=== PATIENT | male | born 1950 | race Caucasian/White ===

== ENCOUNTER → 2024-08-06 | Outpatient (CLI) | payer OTHER ==
[2024-08-06 13:34] LABS: ALBUMIN 3.7 g/dL (3.5-5.0); BILIRUBIN,TOTAL 0.6 mg/dL (0.2-1.0); CREATININE 1.1 mg/dL (0.5-1.3); TOTAL PROTEIN, SERUM 7.8 g/dL (6.0-8.3)
== END | disposition home or self-care (01) ==
LOC: LAB 10:59
PROVIDERS: ATTEND Student in an Organized Health Care Education/Training Program
DX: E78.5 Hyperlipidemia, unspecified (principal); R07.9 Chest pain, unspecified; R06.09 Other forms of dyspnea
CPT/HCPCS: 36415; 80053; 80061

== ENCOUNTER 2024-10-26 05:46 | Day surgery (SDC) | payer OTHER ==
[2024-10-24 09:30] LABS: BASOPHILS # (AUTO) 0.05 K/uL (0.00-0.20); BASOPHILS % (AUTO) 0.6 % (0.0-5.0); EOSINOPHILS % (AUTO) 3.8 % (0.0-8.0); HEMATOCRIT 43.2 % (42-54); IMMATURE GRANULOCYTE ABSOLUTE 0.03 K/uL (0-1); LYMPHOCYTES # (AUTO) 1.9 K/uL (1.0-4.8); LYMPHOCYTES % (AUTO) 23.6 % (21.0-51.0); MEAN CORPUSCULAR HEMOGLOBIN 30.7 pg (27.0-33.0); MEAN CORPUSCULAR HGB CONC 32.9 g/dL (32.0-36.0); MEAN CORPUSCULAR VOLUME 93.5 fL (79-99); MONOCYTES # (AUTO) 0.6 K/uL (0.1-1.0); MONOCYTES % (AUTO) 7.4 % (3.0-13.0); NEUTROPHILS % (AUTO) 64.2 % (40.0-77.0); PLATELET COUNT (AUTO) 192 K/uL (130-400); RED BLOOD CELL COUNT(AUTO) 4.62 MIL/uL (4.50-6.20); RED CELL DISTRIBUTION WIDTH 13.2 % (11.0-15.5); WHITE BLOOD COUNT (AUTO) 7.8 K/uL (4.8-10.8)
[2024-10-24 09:33] LABS: APPEARANCE,URINE CLEAR (CLEAR); BILIRUBIN,URINE NEGATIVE (NEGATIVE); COLOR,URINE LIGHT-YELLOW (YELLOW); GLUCOSE, URINE (UA) NEGATIVE (NEGATIVE); KETONES,URINE NEGATIVE (NEGATIVE); LEUKOCYTE ESTERASE ,URINE NEGATIVE Leu/uL (NEGATIVE); NITRATE,URINE NEGATIVE (NEGATIVE); OCCULT BLOOD,URINE NEGATIVE (NEGATIVE); PROTEIN,URINE NEGATIVE (NEGATIVE); UROBILINOGEN,URINE 0.2 mg/dL (0.2-1.0)
[2024-10-24 09:36] VITALS: BP 128/82; PULSE 51; RESP 18; TEMP 97.9
[2024-10-24 09:37] LABS: ADD UA MICROSCOPIC NO
[2024-10-24 09:38] LABS: CREATININE 1.1 mg/dL (0.5-1.3); POTASSIUM 4.4 mmol/L (3.5-5.1)
[2024-10-24 09:41] LABS: INR 1.01 (0.85-1.15); PROTHROMBIN TIME 10.7 SEC (9.6-11.6)
[2024-10-24 09:42] LABS: PARTIAL THROMBOPLASTIN TIME 28.3 SEC (26.3-35.5)
[2024-10-24 10:26] LABS: B-TYPE NATRIURETIC PEPTIDE 67 pg/mL (0-100)
--- NOTE | 2024-10-24 10:28 | EKG ---
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
--- NOTE | 2024-10-24 11:44 | HMCIMG ---
CHEST 1VW HISTORY: Preop COMPARISON: None FINDINGS: A frontal projection of the chest was obtained. No acute pulmonary infiltrates is seen. The heart is borderline enlarged. Degenerative changes are seen. Aortic calcifications are seen. IMPRESSION: 1. No acute pulmonary infiltrate is seen.
[2024-10-26] VITALS (10 sets, daily range): BP systolic 137–164; BP diastolic 84–95; PULSE 66–74; RESP 13–18; TEMP 97.3–97.8
[~2024-10-26] VITALS: Ht 185.4 cm; Wt 110.9 kg
[~2024-10-26 05:46] MED LIST: ASPI-1443 PO; CARV12.511 PO; ISOS30TA92 PO; METF-446 PO; ROSU40TA88 PO; SEMA1PEN3 SQ; TAMS-55 PO
[2024-10-26] MEDS: 0.9%NACL 1000ML 1,000 ML IV SCH (06:37)
[2024-10-26] MEDS ORDERED: HEParin 10,000 UNIT/10ML (1,000 UNIT/ML) VIAL ONE ×2 (07:10→07:59)
[2024-10-26] MEDS ORDERED: VERAPAMIL HCL 2.5 MG/ML VIAL ONE (07:10)
[2024-10-26] MEDS ORDERED: LIDOCAINE HCL 400MG/20ML VIAL ONE (07:10)
[2024-10-26] MEDS ORDERED: HEParin-NS 1,000 UNIT/500 ML 1,000 ML IV ONE (07:10)
[2024-10-26] MEDS ORDERED: NITROGLYCERIN 50MG VIAL ONE ×2 (07:11→07:12)
[2024-10-26] MEDS ORDERED: IOHEXOL 350 MG/ML 100ML INFUS..BTL IV ONE ×2 (07:14→08:23)
[2024-10-26] MEDS ORDERED: FENTanyl CITRate PF 50 MCG/1 ML 2ML VIAL ONE (07:22)
[2024-10-26] MEDS ORDERED: MIDAZOLAM HCL 1 MG/ML 2ML VIAL ONE ×2 (07:23→08:03)
[2024-10-26] MEDS ORDERED: cloPIDOgrel 300MG TAB ONE (07:59)
[2024-10-26] MEDS ORDERED: ASPIRIN 325MG EC TAB PO ONE (08:01)
[2024-10-26] MEDS ORDERED: HEParin-NS 1,000 UNIT/500 ML 500 ML IV ONE (08:26)
[2024-10-26] MEDS ORDERED: EPTIFIBATIDE 2 MG/ML 10 ML VIAL IVP ONE (08:53)
[2024-10-26] MEDS ORDERED: niCARDIpine 25MG INJ IV ONE (09:21)
--- NOTE | 2024-10-26 09:53 | PRN ---
PROCEDURE REPORT DATE OF PROCEDURE: October 26, 2024 ETHICAL HACKER: [Griffin howard MD ] PROCEDURE PERFORMED: Conscious sedation Ultrasound guided right radial artery access Selective left coronary artery angiogram Selective right coronary artery angiogram Left heart catheterization IVUS of the RCA and ostial PDA Status post successful IVUS guided PTCA/PCI of the mid to distal RCA x4 Status post successful IVUS guided PTCA/IVF (5 mm) of the proximal RCA ISR TR band 13 jordyn over right radial artery INDICATION: Abnormal CCTA DESCRIPTION OF PROCEDURE: After informed consent was obtained, the patient was prepped and draped in the usual sterile fashion. A 6 [place] arterial sheath was inserted in the right radial artery using ultrasound guidance with first pass wall puncture. The arterial sheath was aspirated and flushed. A 6 [place] JL 3.5 was then advanced to the ascending aorta over an exchange length J-tip guidewire, was aspirated and flushed, and was used for selective coronary angiograms in multiple obliquities. A JR-4 was advanced in a similar fashion to the ascending aorta over the J-tipped guidewire and was used for selective right coronary angiograms in multiple oblique views with findings as outlined below. The JR-4 catheter ad vanced into the LV and pressures were obtained with a pull-back across the aortic valve. Following review of all the angiographic images decision was made to intervene on patient's severely diseased prox ISR and mid to distal stenosis of his RCA. We exchanged the diagnostic catheter for a six [place] JR4 guide which was used to select engage the right main coronary artery. We provided loading dose the Plavix and [id number] units of IV heparin and following therapeutic ACT we advanced a Prowater into the distal PDA under fluoroscopic guidance. We also initiated double bolus of Integrilin during the procedure. We proceeded with PTCA of the distal RCA with a 2.5 x 15 mm compliant balloon to 14 JORDYN from the distal mid to distal RCA as well as proximal RCA. We then proceeded with IVUS imaging of the entire RCA including the ostial PDA revealing a distal vessel diameter of the RCA of 3 mm and there is severe stent undersize meant of the proximal RCA stent (stent measures 3.5 mm and vessels 5 mm by IVUS). At this time given his heavily calcified disease we advanced a FineCross microcatheter over the wire to the distal PDA. We then removed the Prowater and exchanged for a supportive iron man guidewire. We then proceeded with stent deployment using a 3 x 15 mm eneida Limestone drug-eluting stent deployed into the distal RCA prior to the bifurcation to nominal pressures. We then deployed a 4 x 15 mm eneida Limestone drug-eluting stent in the distal RCA to nominal pressures. We then deployed a 4.5x30 mm eneida Limestone drug-eluting stent in the mid to distal RCA in overlapping fashion. We noted a small edge dissection just beyond the distal RCA stent struts. So we deployed a 2.5 by 12 mm eneida Limestone drug- eluting stent was deployed to nominal pressures. We then post dilated the stents using a 3 x 15 mm noncompliant balloon to nominal pressures in the distal RCA and then we post dilated the mid to distal RCA using a 4.5 x 20 mm noncompliant balloon to 14 and JORDYN respectively. We then proceeded with shockwave lithotripsy of the proximal RCA ISR using a 4 x 12 mm shockwave balloon to four and six JORDYN respectively. We then performed PTCA using a 5 x 15 mm noncompliant balloon to 14 JORDYN. We provided intracoronary nitroglycerin and final angiographic images revealed mandaen of ERIN three flow with no dissections or perforations. At this time all wires and catheters removed from the body and a by A TR band was placed over right radial artery. Patient tolerated procedure well with no postprocedure complication was transferred to clinical laboratory assistant holding in stable condition FLUOROSCOPY TIME: 20.7 min LEFT HEART HEMODYNAMICS: LVEDP 25 mm Hg and no gradient Ao CORONARY ANGIOGRAM: LEFT MAIN: Patent and 0% stenosis. Gives rise to LCx and LAD. LEFT ANTERIOR DESCENDING: Large vessel giving rise to two Diagonal branches. Patent proximal LAD stent followed by luminal irregularities with ERIN three flow. D1 is large and widely patent LEFT CIRCUMFLEX: Large and gives rise to two OM branches. 0% stenosis. RIGHT CORONARY ARTERY: Large, dominant vessel giving rise to PDA and PL branches. There is a proximal 80- 90% RCA ISR followed by 90-95 mid and distal RCA stenosis. The proximal PLB has a 60-70% stenosis. HEMOSTASIS: TR band 12 jordyn over right radial artery INTERVENTIONS: Status post successful IVUS guided PTCA/PCI of the mid to distal RCA x4 Status post successful IVUS guided PTCA/IVF (5 mm) of the proximal RCA ISR COMPLICATIONS: None FINDINGS: Normal coronary anatomy and severe-obstructive RCA stenosis status post successful revascularization x4 ESTIMATED BLOOD LOSS: 5 cc RECOMMENDATIONS/INSTRUCTIONS: Aggressive risk factor modification. Patient require six months of dap (aspirin 81 mg daily/Plavix 75 mg daily) in addition to high-intensity statin therapy and beta-jackie Patient will follow up with Dr. Patricia howard in 1-2 weeks post discharge Radial precautions CONTRAST DELIVERED TO PATIENT (mL): 250cc GRIFFIN Jay MD, MD October 26, 2024 09:53
[2024-10-26] MEDS ORDERED: 0.9%NACL 1000ML 1,000 ML IV SCH (10:00)
[2024-10-26] MEDS ORDERED: DEXTROSE 50%-WATER 50 ML DISP.SYRIN IV PRN (10:00)
[2024-10-26] MEDS ORDERED: GLUCAGON 1MG KIT 1 MG ML IM PRN (10:00)
[2024-10-26] MEDS ORDERED: CLOP75TA32 PO (11:20)
[2024-10-27] MEDS ORDERED: cloPIDOgrel 75MG TAB PO SCH (09:00)
[2024-10-27] MEDS ORDERED: ASPIRIN 81MG CHEW TAB PO SCH (09:00)
== END 2024-10-26 14:45 | disposition home or self-care (01) ==
LOC: DAH 05:46
PROVIDERS: ATTEND Student in an Organized Health Care Education/Training Program
DX: R93.1 Abnormal findings on diagnostic imaging of heart and coronary circulation (principal); I25.118 Atherosclerotic heart disease of native coronary artery with other forms of angina pectoris; E11.9 Type 2 diabetes mellitus without complications; I10 Essential (primary) hypertension; E78.00 Pure hypercholesterolemia, unspecified; R94.31 Abnormal electrocardiogram [ECG] [EKG]; I45.10 Unspecified right bundle-branch block; Z95.5 Presence of coronary angioplasty implant and graft; R53.83 Other fatigue; R06.09 Other forms of dyspnea; Z79.01 Long term (current) use of anticoagulants; Z79.82 Long term (current) use of aspirin; Z79.84 Long term (current) use of oral hypoglycemic drugs; Z79.899 Other long term (current) drug therapy
CPT/HCPCS: 80048; 83880; 85025; 85610; 85730; 81003; 36415; 71045; 93005; 92978; 92979; 92972; 85347 ×3; 82948 ×2; 93458; C9600; C1769 ×4; C1887 ×3; C1725 ×4; C1874 ×4; C1894; C1761; C1753; J3010; J3490 ×5; J1644 ×4; J2250 ×2; J1327; Q9967 ×2; A4215; A4222; A4221; A4663; A4216; A4606; C9601; Q9965 ×3; A4223 ×3; 96360; 96361; 99156; 99157